=== PATIENT | male | born 1945 | race Caucasian/White ===

== ENCOUNTER → 2016-10-11 | Outpatient (CLI) | payer MEDICARE, OTHER | END | disposition home or self-care (01) | LOC: GMAM 12:20 | PROVIDERS: ATTEND Family Medicine | DX: Z12.5 Encounter for screening for malignant neoplasm of prostate (principal) ==

== ENCOUNTER → 2016-10-14 | Outpatient (CLI) | payer MEDICARE, OTHER | LOC: GMAM 10:21 | PROVIDERS: ATTEND Family Medicine | DX: R31.29 Other microscopic hematuria (principal) ==

== ENCOUNTER → 2017-04-04 | Outpatient (CLI) | payer MEDICARE, OTHER ==
--- NOTE | 2017-04-04 13:20 | MRI ---
Study: MRA of the brain. Indication: CEREBROVASCULAR DISEASE Technique: Non contrast [id number] MRA images of the brain were obtained. 3D MIP reformats of the intracranial arterial vasculature performed. Comparison: None. Findings: No flow identified within the visualized left ICA indicating occlusion or high-grade proximal stenosis. There is however filling of the left MCA as there is a patent anterior communicating artery with retrograde filling of the left A1 segment of the anterior cerebral artery and subsequent filling of the left MCA. No additional sites of high grade intracranial stenosis. Right COMPUTER SPECIALIST is in origin. 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 origin right COMPUTER SPECIALIST. Findings were discussed with Dr. Velasco at 1300 hours on 04/04/2017. Electronically signed by: Shaggy Moffett MD 04/04/2017 1:19 PM CDT
--- NOTE | 2017-04-04 13:37 | MRI ---
Study: MRA of the neck. Indication: CAROTID ARTERY STENOSIS Technique: Non contrast [id number] MRA images of the neck were obtained. 3D MIP reformats of the extracranial vasculature performed. NASCET criteria utilized to evaluate for carotid artery stenosis. Comparison: None. Findings: Examination is moderately motion degraded. No high-grade stenosis of the right carotid artery. Vertebral arteries are codominant and patent. The origins and distal aspects are not well evaluated. No gross stenosis. Left common carotid artery and external carotid artery are patent, however the left internal carotid artery demonstrates no flow throughout the visualized portions. These changes could relate to a high grade stenosis or occlusion. IMPRESSION: No flow identified within the left internal carotid artery, which may reflect a high-grade proximal stenosis versus occlusion throughout. Vascular surgery consultation recommended. Findings were discussed with Dr. Velasco at 1300 hours on 04/04/2017. Electronically signed by: Shaggy Moffett MD 04/04/2017 1:36 PM CDT
== END | disposition home or self-care (01) ==
LOC: MRI 08:46
PROVIDERS: ATTEND Family Medicine
DX: I65.22 Occlusion and stenosis of left carotid artery (principal); E78.2 Mixed hyperlipidemia; R73.9 Hyperglycemia, unspecified; J44.9 Chronic obstructive pulmonary disease, unspecified; I67.9 Cerebrovascular disease, unspecified; N40.0 Benign prostatic hyperplasia without lower urinary tract symptoms

== ENCOUNTER 2017-06-11 14:28 | Emergency (ER) | payer MEDICARE, OTHER ==
[2017-06-11 14:50] VITALS: BP 101/67
--- NOTE | 2017-06-11 15:24 | ED.PDOC ---
History of Present Illness - General Chief Complaint: Neuro Symptoms/Deficits Stated Complaint: Unable to grasp with right hand Time Seen by Provider: 06/11/17 15:21 Source: patient, RN notes reviewed, Vital Signs reviewed Additional Information: Pt reports sensation of right hand weakness since this am. No other focal neuro complaints or deficits reported. He has a history of TIAs in the past as well as known 100% Carotid occlusion based on previous MRA a few months ago. Pt has a long-standing history of smoking and he appears to be on optimal medical therapy. - History of Present Illness Timing/Duration: 4-6 hours Improving Factors: nothing Worsening Factors: nothing Associated Symptoms: denies symptoms - no slurred speech, no facial droop, no gait disturbances Allergies/Adverse Reactions: Allergies Tramadol [From Located Within [facility]] Allergy (Verified 06/11/17 14:41) Rash Itch Home Medications: Ambulatory Orders Metoprolol Succinate [Toprol Xl] 25 mg PO BID 08/20/13 Pravastatin Sodium 40 mg PO BEDTIME 08/20/13 Aspirin [Baby Aspirin] 81 mg PO DAILY 04/25/15 Clopidogrel Bisulfate [Plavix] 75 mg PO BEDTIME 06/11/17 Review of Systems - Review of Systems Constitutional: States: no symptoms reported EENTM: States: no symptoms reported Respiratory: States: no symptoms reported Cardiology: States: no symptoms reported Gastrointestinal/Abdominal: States: no symptoms reported Genitourinary: States: no symptoms reported Musculoskeletal: States: see HPI Skin: States: no symptoms reported Neurological: States: see HPI Endocrine: States: no symptoms reported Hematologic/Lymphatic: States: no symptoms reported Past Medical History (General) - Patient Medical History Hx Stroke: Yes - Hx TIAs Hx Cardiac Disorders: Yes - high cholesterol Hx Congestive Heart Failure: No Hx Hypertension: Yes Hx Diabetes: No Surgical History: other - Vaccination History Hx Influenza Vaccination: Yes - 2016 Hx Pneumococcal Vaccination: Yes - Social History Hx Tobacco Use: Yes - 05/2017 Family Medical History - Family History Father Living Status: Hx Family Cancer: Yes - pancreas Physical Exam - Physical Exam General Appearance: Alert, Comfortable, No apparent distress, Well Developed, Well Groomed, Well Hydrated, Well Nourished Eye Exam: bilateral normal ENT Exam: normal ENT inspection Neck: non-tender, full range of motion, supple Respiratory: no respiratory distress, no accessory muscle use Cardiovascular/Chest: normal peripheral pulses, regular rate, rhythm Gastrointestinal/Abdominal: non tender, soft Extremities Exam: non-tender, normal range of motion 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 He has full range of motion of right upper extremity and all other extremities. Sensation intact as well. Plan was to obtain routine labs and ensure there are no gross metabolic or hematologic abnormalities to explain symptoms. - Results/Orders Results/Orders: Laboratory Results - last 24 hr 06/11/17 06/11/17 15:42 15:42 WBC 4.0 L RBC 4.37 L Hgb 13.6 L Hct 40.6 L MCV 92.8 MCH 31.1 H MCHC 33.6 RDW 13.9 Plt Count 167 MPV 8.3 Absolute Neuts (auto) 2.30 Absolute Lymphs (auto) 1.10 Absolute Monos (auto) 0.40 Absolute Eos (auto) 0.10 Absolute Basos (auto) 0.00 Neutrophils % 58.7 Lymphocytes % 28.1 Monocytes % 10.1 H Eosinophils % 2.6 Basophils % 0.5 Sodium 141 Potassium 4.2 Chloride 107 Carbon Dioxide 25 Anion Gap 13.2 BUN 39 H Creatinine 1.32 H BUN/Creatinine Ratio 29.5 H Random Glucose 92 Serum Osmolality 290.3 Calcium 8.7 Phosphorus 3.8 Magnesium 2.0 Total Bilirubin 0.8 AST 33 ALT 20 Alkaline Phosphatase 52 Serum Total Protein 6.5 Albumin 3.5 Globulin 3.0 Albumin/Globulin Ratio 1.2 06/11/17 14:43 Temperature 96.8 F L Pulse Rate [ 67 Left Radial] Respiratory 20 Rate Blood Pressure 101/67 [Left Arm] O2 Sat by Pulse 95 Oximetry Departure - Departure Clinical Impression: Right hand weakness, Peripheral vascular disease, Cigarette smoker Time of Disposition: 16:25 Disposition: Discharge to Home or Self Care Condition: Fair Departure Forms: ED Discharge - Pt. Copy, Patient Portal Self Enrollment Instructions: Smoking Cessation for Older Adults: It's Not Too Late! Referrals: Migel Velasco MD [Primary Care Provider] - 1-2 Weeks Home Medications: Ambulatory Orders Metoprolol Succinate [Toprol Xl] 25 mg PO BID 08/20/13 Pravastatin Sodium 40 mg PO BEDTIME 08/20/13 Aspirin [Baby Aspirin] 81 mg PO DAILY 04/25/15 Clopidogrel Bisulfate [Plavix] 75 mg PO BEDTIME 06/11/17 Additional Instructions: Continue current medication therapy. Follow-up with Neurologist in [place]. Return to ER if condition worsens.
[2017-06-11 16:24] VITALS: TEMP 97; O2SAT 96
== END 2017-06-11 16:15 | disposition home or self-care (01) ==
LOC: ER 14:28
DX: M62.81 Muscle weakness (generalized) (principal); I73.9 Peripheral vascular disease, unspecified; F17.210 Nicotine dependence, cigarettes, uncomplicated; I10 Essential (primary) hypertension; Z86.73 Personal history of transient ischemic attack (TIA), and cerebral infarction without residual deficits; E78.00 Pure hypercholesterolemia, unspecified; Z79.82 Long term (current) use of aspirin; Z79.02 Long term (current) use of antithrombotics/antiplatelets

== ENCOUNTER 2017-11-21 16:34 | Emergency (ER) | payer MEDICARE, OTHER ==
[2017-11-21 16:48] VITALS: TEMP 97.8
[2017-11-21] MEDS ORDERED: HYDROcodone 5MG/APAP 325MG 1 EA TAB PO ONE (16:58)
[2017-11-21] MEDS ORDERED: GABAPENTIN 300 MG CAP PO ONE (16:58)
--- NOTE | 2017-11-21 17:01 | ED.PDOC ---
History of Present Illness - General Chief Complaint: General Stated Complaint: back pain Time Seen by Provider: 11/21/17 16:39 Source: patient Exam Limitations: no limitations - History of Present Illness Initial Comments: The patient is a 72-year-old male presenting with left lower extremity sciatica this been worsening for the last 1-2 weeks. He did go to see his primary care doctor and was placed on oral steroids and oral Flexeril. 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 He is not having any weakness. No sensory loss. No incontinence. He is not actually having any new back pain. Most of his pain isessentially over the left piriformis muscle. Timing/Duration: 1 week Severity: moderate Improving Factors: nothing Worsening Factors: nothing Associated Symptoms: denies symptoms Allergies/Adverse Reactions: Allergies Tramadol [From Ultram] Allergy (Verified 11/21/17 16:47) Rash Itch Home Medications: Ambulatory Orders Metoprolol Succinate [Toprol Xl] 25 mg PO BID 08/20/13 Pravastatin Sodium 40 mg PO BEDTIME 08/20/13 Aspirin [Baby Aspirin] 81 mg PO DAILY 04/25/15 Clopidogrel Bisulfate [Plavix] 75 mg PO BEDTIME 06/11/17 Xrznwtdpdgbws-Xuwj-Rxuaoipofa [Fioricet] 1 ea PO Q8H PRN #21 tab 11/21/17 Gabapentin 200 mg PO Q8HR PRN #30 cap 11/21/17 Review of Systems - Review of Systems Constitutional: States: no symptoms reported EENTM: States: no symptoms reported Respiratory: States: no symptoms reported Cardiology: States: no symptoms reported Gastrointestinal/Abdominal: States: no symptoms reported Genitourinary: States: no symptoms reported Musculoskeletal: States: see HPI Skin: States: no symptoms reported Neurological: States: see HPI Endocrine: States: no symptoms reported All other Systems: No Change from Baseline Past Medical History (General) - Patient Medical History Hx Stroke: Yes - Hx TIAs Hx Cardiac Disorders: Yes - high cholesterol Hx Congestive Heart Failure: No Hx Hypertension: Yes Hx Diabetes: No Surgical History: other - Vaccination History Hx Influenza Vaccination: Yes Hx Pneumococcal Vaccination: Yes - Social History Hx Tobacco Use: Yes Hx Alcohol Use: No Family Medical History - Family History Father Living Status: Hx Family Cancer: Yes - pancreas Physical Exam - Physical Exam General Appearance: Alert, Comfortable, No apparent distress Eye Exam: bilateral normal Ears, Nose, Throat: hearing grossly normal, normal ENT inspection, normal pharynx Neck: full range of motion, supple Respiratory: no respiratory distress, no accessory muscle use Cardiovascular/Chest: normal peripheral pulses, no edema Peripheral Pulses: radial,right: 2+, radial,left: 2+, dorsalis pedis,right: 2+, dorsalis pedis,left: 2+ Rectal Exam: deferred Back Exam: no CVA tenderness, no vertebral tenderness Extremity: normal range of motion, no pedal edema, no calf tenderness, normal capillary refill Neurologic: medical certification specialist II-XII nml as tested, alert, normal mood/affect, oriented x 3 Skin Exam: normal color Comments: Vital Signs - 24 hr 11/21/17 16:40 Temperature 97.8 F Pulse Rate [ 85 pulse ox] Respiratory 20 Rate Blood Pressure 168/104 [Left Arm] O2 Sat by Pulse 97 Oximetry Progress - Progress Progress: 11/21/17 17:01 the patient is a 72-year-old male presenting to the emergency room with what appears to be left lower extremity sciatica that is actually most likely related to piriformis syndrome on that side. He is already taking a muscle relaxer and a steroid. I'm going to write the patient for some gabapentin to take to help reduce nerve pain and some Fioricet simply for pain control. He needs to do stretches of his back and of the left lower extremity to help reduce spasm from the piriformis muscle. He needs to follow-up with his primary care doctor later in the week. He does need to be careful because the combination of pain medications above may make him drowsy. topical heat may also help. ER warnings were given for any significant worsening. Departure - Departure Clinical Impression: Piriformis syndrome of left side Disposition: Discharge to Home or Self Care Condition: Fair Departure Forms: ED Discharge - Pt. Copy, Patient Portal Self Enrollment Instructions: DI for Sciatica Diet: regular diet Activity: increase activity as tolerated Referrals: Migel Velasco MD [Primary Care Provider] - 1-2 Weeks Prescriptions: Gabapentin 200 mg PO Q8HR PRN #30 cap PRN Reason: Pain -- Moderate Woibkqqnqunez-Iuxk-Bhsyojglde [Fioricet] 1 ea PO Q8H PRN #21 tab PRN Reason: Pain Home Medications: Ambulatory Orders Metoprolol Succinate [Toprol Xl] 25 mg PO BID 08/20/13 Pravastatin Sodium 40 mg PO BEDTIME 08/20/13 Aspirin [Baby Aspirin] 81 mg PO DAILY 04/25/15 Clopidogrel Bisulfate [Plavix] 75 mg PO BEDTIME 06/11/17 Dzouxnlgpihqj-Xros-Hqokkrskxd [Fioricet] 1 ea PO Q8H PRN #21 tab 11/21/17 Gabapentin 200 mg PO Q8HR PRN #30 cap 11/21/17 Additional Instructions: the patient is a 72-year-old male presenting to the emergency room with what appears to be left lower extremity sciatica that is actually most likely related to piriformis syndrome on that side. He is already taking a muscle relaxer and a steroid. I'm going to write the patient for some gabapentin to take to help reduce nerve pain and some Fioricet simply for pain control. He needs to do stretches of his back and of the left lower extremity to help reduce spasm from the piriformis muscle. He needs to follow-up with his primary care doctor later in the week. He does need to be careful because the combination of pain medications above may make him drowsy. topical heat may also help. ER warnings were given for any significant worsening.
[2017-11-21 17:28] VITALS: BP 147/73; O2SAT 96
== END 2017-11-21 17:27 | disposition home or self-care (01) ==
LOC: ER 16:34
DX: G57.02 Lesion of sciatic nerve, left lower limb (principal); E78.00 Pure hypercholesterolemia, unspecified; I10 Essential (primary) hypertension; Z86.73 Personal history of transient ischemic attack (TIA), and cerebral infarction without residual deficits; Z87.891 Personal history of nicotine dependence; Z79.82 Long term (current) use of aspirin; Z79.02 Long term (current) use of antithrombotics/antiplatelets

== ENCOUNTER → 2017-11-30 | Outpatient (CLI) | payer MEDICARE, OTHER ==
--- NOTE | 2017-11-30 12:04 | MRI ---
EXAM DESCRIPTION: Lumbar Spine w/o Contrast CLINICAL HISTORY: 72 years Male, LOW BACK PAIN COMPARISON: Radiographs of the lumbar spine dated 11/16/2017. TECHNIQUE: Multiplanar multiecho imaging of the lumbar spine was performed without intravenous contrast administration. FINDINGS: There is straightening of the normal lordotic curvature of the lumbar spine. Congenital canal stenosis is noted secondary to short pedicles. The vertebral body heights are well-maintained with no acute compression deformity. Multilevel intervertebral disc space narrowing is noted. The conus medullaris terminates at T11-T12 level. The visualized spinal cord demonstrates no signal abnormality. L1-L2: Posterior disc osteophyte complex with resultant mild canal stenosis. There is moderate bilateral neural foraminal narrowing. L2-L3: Posterior disc osteophyte complex and bilateral facet arthropathy with resultant moderate to severe canal stenosis, moderate to severe right and moderate left neural foraminal narrowing. L3-L4: Posterior disc osteophyte complex and bilateral facet arthropathy with resultant severe canal stenosis, moderate right and moderate to severe left neural foraminal narrowing. L4-L5: No significant canal stenosis. There is moderate left neural foraminal narrowing secondary to facet arthropathy. L5-S1: Mild right and moderate left neural foraminal narrowing is noted secondary to facet arthropathy. Aneurysmal dilatation of the infrarenal abdominal aorta measuring up to 4.7 cm. Remainder of the visualized prevertebral and paravertebral soft tissues appear normal. IMPRESSION: 1. 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 2. Aneurysmal dilatation of the infrarenal abdominal aorta measuring up to 4.7 cm. CTA abdomen and pelvis is recommended for further evaluation. Electronically signed by: Winnie Rodney MD 11/30/2017 12:03 PM CDT
== END ==
LOC: MRI 10:00
PROVIDERS: ATTEND Nurse Practitioner Family
DX: M54.5 Low back pain (principal); I71.4 Abdominal aortic aneurysm, without rupture

== ENCOUNTER → 2018-01-02 | Outpatient (CLI) | payer MEDICARE, OTHER | LOC: GMAM 12:46 | PROVIDERS: ATTEND Family Medicine | DX: N40.0 Benign prostatic hyperplasia without lower urinary tract symptoms (principal); I10 Essential (primary) hypertension ==

== ENCOUNTER → 2019-02-15 | Outpatient (CLI) | payer MEDICARE, OTHER | LOC: GMAM 11:33 | PROVIDERS: ATTEND Family Medicine | DX: R53.83 Other fatigue (principal); I10 Essential (primary) hypertension; R73.9 Hyperglycemia, unspecified; E78.2 Mixed hyperlipidemia ==

== ENCOUNTER → 2019-02-19 | Outpatient (CLI) | payer MEDICARE, OTHER | LOC: GMAM 18:30 | PROVIDERS: ATTEND Family Medicine | DX: Z12.5 Encounter for screening for malignant neoplasm of prostate (principal) ==

== ENCOUNTER → 2019-02-22 | Outpatient (CLI) | payer MEDICARE, OTHER ==
--- NOTE | 2019-02-22 20:13 | US ---
EXAM DESCRIPTION: Aorta: Ultrasound. CLINICAL HISTORY: ABDOMINAL AORTIC ANEURYSM WITHOUT RUPTURE COMPARISON: MRI scan of lumbar spine, November 30, 2017. TECHNIQUE: Transcutaneous scanning: Two-dimensional and Doppler modes. FINDINGS: Abdominal aorta diameter - Proximal: 3.5 x 3.4 cm. Mid: 4.4 x 3.5 cm. Distal: 5.8 x 5.4 cm. Common Iliac diameter - Right: 19 mm. Left: 18 mm. Other: Intimal wall thickening increases from the mid to the distal abdominal aorta. Also aneurysmal dilation of the right and left proximal common iliac arteries.. IMPRESSION: 1. 5.8 cm abdominal aortic aneurysm. Enlarged from 4.7 cm on lumbar MRI scan November 2017. Recommend referral to a vascular specialist. Reference: J Am Rox Radiol 2013;10:789-794. 2. 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 Electronically signed by: Arnol Prado MD 02/22/2019 8:12 PM CDT
== END ==
LOC: US 08:00
PROVIDERS: ATTEND Family Medicine
DX: I71.4 Abdominal aortic aneurysm, without rupture (principal); I72.3 Aneurysm of iliac artery; Z87.891 Personal history of nicotine dependence

== ENCOUNTER → 2019-04-16 | Outpatient (CLI) | payer MEDICARE, OTHER ==
--- NOTE | 2019-04-16 16:20 | RAD ---
EXAM DESCRIPTION: Shoulder,Left 2 or More Views CLINICAL HISTORY: 73 years Male, PAIN IN LEFT SHOULDER COMPARISON: None available. FINDINGS: The visualized bones are well-mineralized.No acute fracture or dislocation. The soft tissues appear grossly unremarkable. Moderate to severe glenohumeral joint osteoarthritis with large osteophyte noted along the inferior aspect of the humeral head. 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 Electronically signed by: Winnie Rodney MD 04/16/2019 4:18 PM CDT
== END ==
LOC: RAD 12:03
PROVIDERS: ATTEND Orthopaedic Surgery
DX: M19.012 Primary osteoarthritis, left shoulder (principal); M77.9 Enthesopathy, unspecified